=== PATIENT | female | born 1985 | race African-American/Black ===

== ENCOUNTER 2018-12-10 23:44 | Emergency (ER) | payer MEDICAID ==
[~2018-12-10] VITALS: Ht 170.2 cm; Wt 97.0 kg
[2018-12-11 00:38] LABS: CLARITY URINE CLEAR (CLEAR); COLOR URINE YELLOW (YELLOW); KETONES URINE NEGATIVE (NEGATIVE); LEUKOCYTE ESTERASE URINE NEGATIVE (NEGATIVE); NITRITE URINE NEGATIVE (NEGATIVE); OCCULT BLOOD URINE NEGATIVE (NEGATIVE); PROTEIN URINE NEGATIVE (NEGATIVE); SPECIFIC GRAVITY URINE 1.015 (1.005-1.030); UROBILINOGEN URINE 0.2 E.U./dL (0.2-1.0)
[2018-12-11] MEDS ORDERED: SODIUM CHLORIDE 0.9% 1,000 ML IV ONE (03:46)
[2018-12-11] MEDS ORDERED: KETOROLAC 30MG/ML VIAL IV STA (03:46)
[2018-12-11 04:10] LABS: BASOPHILS % 0.7 % (0.0-2.0); HEMATOCRIT. 37.3 % (36.0-48.0); HEMOGLOBIN. 12.2 g/dL (12.0-16.0); LYMPHOCYTES % 43.5 % (20.0-50.0); MEAN CORPUSCULAR HEMOGLOBIN 26.3 pg (28.0-32.0); MEAN CORPUSCULAR VOLUME 80.4 fL (81.0-99.0); MEAN PLATELET VOLUME 7.9 fl (7.4-10.4); MONOCYTES % 10.1 % (2.0-8.0); NEUTROPHILS % 42.7 % (40.0-76.0); PLATELET 250 x1000/uL (130-400); RED BLOOD CELL COUNT 4.64 mill/uL (4.2-5.4); RED CELL DISTRIBUTION WIDTH 15.4 % (11.6-14.6)
[2018-12-11 04:12] LABS: CHLORIDE 105 mEq/L (98-107)
[2018-12-11 05:45] VITALS: BP 118/76
== END 2018-12-11 05:51 | disposition home or self-care (01) ==
LOC: ER 23:44
DX: J01.90 Acute sinusitis, unspecified (principal); M60.9 Myositis, unspecified; J39.9 Disease of upper respiratory tract, unspecified; F17.200 Nicotine dependence, unspecified, uncomplicated
CPT/HCPCS: 36415; 71045; 80053; 81003; 81025; 85025; 87070; 87430; 87804; 96374; 99284; J1885; J7030

== ENCOUNTER 2019-05-18 10:20 | Emergency (ER) | payer MEDICAID, OTHER ==
[~2019-05-18] VITALS: Ht 172.7 cm; Wt 96.0 kg
[2019-05-18 10:22] VITALS: BP 157/79
== END 2019-05-18 12:28 | disposition home or self-care (01) ==
LOC: ER 10:20
DX: Z77.21 Contact with and (suspected) exposure to potentially hazardous body fluids (principal)
CPT/HCPCS: 99281

== ENCOUNTER 2021-05-31 23:23 | Observation (INO) | payer OTHER ==
[~2021-05-31] VITALS: Ht 172.7 cm; Wt 96.2 kg
[2021-06-01 02:11] LABS: CLARITY URINE CLEAR (CLEAR); COLOR URINE YELLOW (YELLOW); KETONES URINE NEGATIVE (NEGATIVE); LEUKOCYTE ESTERASE URINE NEGATIVE (NEGATIVE); NITRITE URINE NEGATIVE (NEGATIVE); OCCULT BLOOD URINE NEGATIVE (NEGATIVE); PH URINE 6.5 (4.5-8.0); PROTEIN URINE NEGATIVE (NEGATIVE); SPECIFIC GRAVITY URINE 1.016 (1.005-1.030); UROBILINOGEN URINE 0.2 E.U./dL (0.2-1.0)
[2021-06-01] MEDS ORDERED: FERR-71 PO (03:26)
[2021-06-01] MEDS ORDERED: ASCO-339 PO (03:26)
[2021-06-01] MEDS ORDERED: METF-414 PO (03:26)
[2021-06-01] MEDS ORDERED: FOLI-43 PO (03:26)
[2021-06-01] MEDS ORDERED: CALC-1042 PO (03:26)
[2021-06-01] MEDS ORDERED: PREN1TAB23 PO (03:26)
== END 2021-06-01 04:30 | disposition home or self-care (01) ==
LOC: 8 EST LDRP 23:23
PROVIDERS: ADMIT Obstetrics & Gynecology; ATTEND Obstetrics & Gynecology
DX: O26.852 Spotting complicating pregnancy, second trimester (principal); Z3A.26 26 weeks gestation of pregnancy
CPT/HCPCS: 59025; 76805; 76817; 81003; G0378; 99281

== ENCOUNTER 2022-05-12 06:10 | Emergency (ER) | payer OTHER ==
[~2022-05-12] VITALS: Ht 170.2 cm; Wt 98.2 kg
[~2022-05-12 06:10] MED LIST: ASCO-339 PO; CALC-1042 PO; FERR-71 PO; FOLI-43 PO; METF-414 PO; PREN1TAB23 PO
[2022-05-12] MEDS ORDERED: MAGNESIUM/ALUMINUM HYDROXIDE/SIMETHICONE 30ML UDC PO STA (09:17)
[2022-05-12] MEDS ORDERED: VISCOUS LIDOCAINE 2% 15 ML UDC PO STA (09:17)
[2022-05-12] MEDS ORDERED: FAMOTIDINE 20MG TABLET PO ONE (09:30)
[2022-05-12 10:23] LABS: BASOPHILS % 0.6 % (0.0-2.0); EOSINOPHILS % 0.9 % (0.0-5.0); HEMATOCRIT. 40.6 % (36.0-48.0); HEMOGLOBIN. 13.2 g/dL (12.0-16.0); LYMPHOCYTES % 40.2 % (20.0-50.0); MEAN CORPUSCULAR HEMOGLOBIN 26.6 pg (28.0-32.0); MEAN CORPUSCULAR VOLUME 81.5 fL (81.0-99.0); MEAN PLATELET VOLUME 8.1 fl (7.4-10.4); MONOCYTES % 4.7 % (2.0-8.0); NEUTROPHILS % 53.6 % (40.0-76.0); PLATELET 289 x1000/uL (130-400); RED BLOOD CELL COUNT 4.98 mill/uL (4.2-5.4); RED CELL DISTRIBUTION WIDTH 14.4 % (11.6-14.6)
[2022-05-12 10:29] LABS: CHLORIDE 102 mEq/L (98-107)
[2022-05-12 10:33] LABS: HCG SCREEN NEGATIVE
[2022-05-12 13:08] LABS: CLARITY URINE CLEAR (CLEAR); COLOR URINE DARK YELLOW (YELLOW); KETONES URINE TRACE (NEGATIVE); LEUKOCYTE ESTERASE URINE NEGATIVE (NEGATIVE); NITRITE URINE NEGATIVE (NEGATIVE); OCCULT BLOOD URINE NEGATIVE (NEGATIVE); PH URINE 5.5 (4.5-8.0); PROTEIN URINE 1+ (NEGATIVE); SPECIFIC GRAVITY URINE 1.036 (1.005-1.030)
[2022-05-12] MEDS ORDERED: MAG-55 MT (13:18)
[2022-05-12] MEDS ORDERED: FAMO-135 MT (13:18)
[2022-05-12 14:05] VITALS: BP 126/96
== END 2022-05-12 14:06 | disposition home or self-care (01) ==
LOC: ER 06:10
DX: K80.20 Calculus of gallbladder without cholecystitis without obstruction (principal); K80.50 Calculus of bile duct without cholangitis or cholecystitis without obstruction; E11.9 Type 2 diabetes mellitus without complications; Z79.899 Other long term (current) drug therapy
CPT/HCPCS: 36415; 76705; 80053; 81003; 81025; 84703; 85025; 99284